=== PATIENT | female | born 1950 | race Caucasian/White ===

== ENCOUNTER 2022-01-30 12:46 | Day surgery (SDC) | payer SELFPAY ==
[2022-01-30] VITALS (8 sets, daily range): BP systolic 143–166; BP diastolic 78–86; PULSE 64–75; RESP 14–18; TEMP 36.2–36.9; O2SAT 90–99; BMI 42.8
--- NOTE | 2022-01-30 13:05 | RAD_ITS ---
STUDY: X-RAY - ABDOMEN/PELVIS REASON FOR EXAM: Female, 71 years old. PREOP LEFT KIDNEY STONE TECHNIQUE: Single AP view of the abdomen / pelvis. COMPARISON: None. FINDINGS: Elevation of the right hemidiaphragm. There is a moderate amount of colonic fecal material. There is a 6.5 mm calcification overlying the transverse process of the L4 vertebrae on the left side. This may represent a mid left ureteral calculus. Normal soft tissue structures. There are degenerative changes of the visualized lumbar spine. Mild levoscoliosis. RAD/Abdomen Single View IMPRESSION: Findings suggestive of a 6.5 mm calcification overlying the transverse processes of the L4 vertebrae on the left side. Electronically Signed: Alexy Redman MD at 14:03 EDT ,
[2022-01-30] MEDS: Lactated Ringers 1,000 ML 15 ML IV (13:49)
[2022-01-30] MEDS: Cefazolin 2 GM in 0.9% Normal Saline 100 ML IV (14:50)
--- NOTE | 2022-01-30 15:39 | DCINST_ITS ---
Discharge Instructions Diet Discharge Diet: No restrictions Activity Discharge Activity: Return to Normal Activity Follow Up Care Please Follow Up With: Charlie Darden MD When: next week to remove stent Test Results: Test results from this visit will be discussed in further detail at your follow- up appointment, if applicable. Discharge Plan Admission Primary Reason for Your Visit: left kidney stone Attending Provider: Charlie Darden Primary Care Provider: Rey Lara Discharge Orders/Prescriptions Prescriptions: New ciprofloxacin HCl [Cipro] 500 mg tablet 500 mg PO BID Qty: 10 0RF oxycodone-acetaminophen 5-325 mg tablet 1 tab PO Q4H PRN (Reason: pain) 7 Days Qty: 14 0RF No Action ondansetron HCl [Zofran] 4 mg Tablet 4 mg PO Q8H PRN (Reason: Nausea) cephalexin 250 mg Tablet 250 mg PO BID ketorolac 10 mg Tablet 10 mg PO Q6H PRN (Reason: Pain) oxycodone-acetaminophen [Percocet] 5-325 mg Tablet 1 tab PO Q8H PRN (Reason: Pain) Referrals / Follow Up: Charlie Darden MD [Med Staff - Active Staff] - Rey Lara MD [Primary Care Provider] - Disposition Disposition (needs filled in before D/C Order can be placed): Home, Self Care
--- NOTE | 2022-01-30 15:39 | PCM.HP.STD ---
HPI - General HPI Narrative DANII ALEXIS, is a 71 F who presents for treatment of a left mid ureteral calculi and stent placement PFS Medical History (Updated 01/30/22 @ 15:[address] Charlie Darden MD) Diabetes Easy bruising History of edema History of stress test Hx of fracture of ankle Non-smoker Phlebitis Shortness of breath on exertion Wears glasses Wears partial dentures Home Medications cephalexin 250 mg tablet 250 mg PO BID 01/29/22 [History Last Taken Unknown] ketorolac 10 mg tablet 10 mg PO Q6H PRN Pain 01/29/22 [History Last Taken 01/30/22 02:00] ondansetron HCl 4 mg tablet 4 mg PO Q8H PRN Nausea 01/29/22 [History Last Taken Unknown] oxycodone-acetaminophen 5 mg-325 mg tablet (Percocet) 1 tab PO Q8H PRN Pain 01/29/22 [History Last Taken Unknown] ciprofloxacin HCl 500 mg tablet (Cipro) 500 mg PO BID #10 tabs 01/30/22 [Rx Last Taken Unknown] oxycodone-acetaminophen 5 mg-325 mg tablet 1 tab PO Q4H PRN pain 7 days #14 tabs 01/30/22 [Rx Last Taken Unknown] Allergy/AdvReac Type Severity Reaction Status Date / Time No Known Allergies Allergy Verified 01/30/22 13:34 Surgical History (Updated 01/29/22 @ 08:59 by Angelica Queen) Hx of dilation and curettage Social History Smoking Status: Never smoker Vital Signs Vital Signs Vital Signs: 01/30/22 13:37 01/30/22 13:39 Temperature 97.9 F Temperature Source Temporal Pulse Rate 73 Respiratory Rate 18 Respiratory Pattern Normal Blood Pressure 162/78 H Blood Pressure Mean 106 Blood Pressure Source Monitor Blood Pressure Position Semi-Fowlers Blood Pressure Location Right Arm Pulse Ox 98 Oxygen Delivery Method Room Air Weight Weight: 109.769 kg Body Mass Index (BMI) 42.8 Results Radiology Impression KUB X-Ray 01/30/22 13:05 IMPRESSION: Findings suggestive of a 6.5 mm calcification overlying the transverse processes of the L4 vertebrae on the left side. Electronically Signed: Alexy Redman MD at 14:03 EDT ,
--- NOTE | 2022-01-30 15:40 | PCM.OPRPT ---
Report of Operation Date of Procedure: 01/30/22 Pre-Operative Diagnosis: Left mid ureteral calculi Post-Operative Diagnosis: Same Surgery/Procedure Performed:: Cystoscopy left stent placement left ESWL Description of Surgical Findings:: Patient presents to the hospital for treatment of a kidney stone with shockwave lithotripsy. In the preoperative area and x-ray was done to confirm the location of the stone. The x-ray was reviewed and the stone location was reviewed. In the preoperative setting I spoke with the patient regarding the treatment of the stone how the treatment would be conducted and the expectations after surgery. The patient understands there is a risk of bleeding and infection. Also discussed the very rare risk of hematoma or damage to the kidney. We also discussed the risk that the shockwave machine will fail to break the stone adequately and that the patient may need other surgical procedures. We also discussed the possibility that the patient may need a stent after the procedure. After reviewing the procedure with the patient, the patient is signed the consent form all the patient's questions were addressed and was taken back to the operating room for treatment of a kidney stone. Patient was taken back to the operating room, patient was identified by the nursing staff, we identified the side of the treatment and the patient side of treatment had been marked by my initials. The patient underwent general anesthetic and was placed supine on the lithotripter table. We then used fluoroscopy to identify the stone on the Left side. The urethra and genitals were prepped and draped in usual sterile fashion. Using a 21 [place]ammar[place] rigid cystourethroscope the entire length of the urethra was normal then went into the bladder. Identified the trigone the left and right ureteral orifice. I then cannulated the left orifice and advanced a wire up into the kidney. I then backloaded a 5 Sammarinese open ended catheter over the wire and injected contrast to delineate the anatomy. After the retrograde was performed I then used fluoroscopic images and guidance to advanced a wire up into the kidney and over the 0.038 glidewire I advanced a 6 Sammarinese by 26 cm double pigtail stent. I then pulled the 0.038 Glidewire off and the stent coiled in the kidney bladder good position. The bladder was then drained. We confirmed the position of the stent by fluoroscopy. We then positioned the patient under the lithotripter and we used triangulation technique to identify the location of the stone and then we made sure that the stone was engaged in the F2 focal point of F2 Donier lithoprior machine. Once the patient was positioned appropriately and the stone was identified and placed in the F2 focal point of the lithotripter machine we then proceeded with shockwave lithotripsy. In the beginning the shockwave was delivered at a rate of 90 shocks per minute, we monitor the EKG for any ectopy. The power was slowly increased to 5 kV and subsequently at the 7 kV. We then proceeded with the treatment we move the therapy had around during the treatment to make sure the stone stayed in the F2 focal point during the entire treatment and after 3000 shockwaves were delivered to the stone under fluoroscopic guidance the treatment was completed. The patient was given instructions to call the office to make an a follow-up appointment with an xray to evaluate the success of the treatment, pateint understands that its possible the stones may need another procedure.At this point the patient's anesthetic was reversed patient was extubated and taken back to the PACU in stable condition. Surgeon: Charlie Darden Type of Anesthesia: General Drains: stent Admit VTE Documentation VTE Present on Admission: No VTE Mechan Device Prophylaxis: SCD's VTE Pharm Prophylaxis ordered?: No
== END 2022-01-30 16:55 | disposition home or self-care (01) ==
LOC: SDC 12:57 → AC 13:00
PROVIDERS: PCP Family Medicine; Referring Provider Urology; Visit Provider Urology
PROC: (CPT 50590; principal; 2022-01-30 14:55)
DX: N20.1 Calculus of ureter (principal); E11.9 Type 2 diabetes mellitus without complications; R06.02 Shortness of breath; Z79.899 Other long term (current) drug therapy
CPT/HCPCS: 74018; J7120; C1769; J2405